=== PATIENT | female | born 1970 | race African-American/Black ===

== ENCOUNTER 2019-05-16 23:52 | Emergency (ER) | payer SELFPAY ==
--- NOTE | 2019-05-17 00:13 | ED.GENADUL_ITS ---
Discharge Plan Disposition Patient Disposition: HOME Condition: Good Discharge Details Chief Complaint: Orthopedic Clinical Impression: Acute pain of right shoulder ED Provider: Korey Loco Home Meds and New Rx's Prescriptions: New lidocaine [Lidoderm] 1 PATCH patch 1 patch Topical Q24H Qty: 4 RF: 0 No Action ibuprofen 800 mg Tablet 800 mg PO PRN PRNRF: 0 venlafaxine [Effexor XR] 150 mg Capsule,Extended Release 24hr 150 mg PO QPM RF: 0 ropinirole 2 mg Tablet Extended Release 24 Hr 2.5 mg PO DAILY RF: 0 Discharge Instructions Instructions: Shoulder Pain (ED) Additional Instructions: At this time I am concerned that you have injured your rotator cuff and labrum in your shoulder. Please avoid any significant use of your right shoulder. Please gently move it in all directions to maintain mobility. Recommend continuing Tylenol and Motrin daily, and the Lidoderm patches as needed. Please follow-up closely with the firefighting equipment specialist. If you notice any worsening of your symptoms, or any new symptoms such as vomiting, diarrhea, fever, chills, shortness of breath, chest pain, numbness, weakness, or fainting , please return immediately to the emergency department for reevaluation. Please follow up with your primary care provider as soon as possible for reassessment and reevaluation. As always, it was a pleasure participating in your medical care today. Stand Alone Forms: Work Release Medical Decision Making This is a pleasant 49-year-old -British female who presents for right shoulder right elbow pain. 5 days ago she fell and landed on her right shoulder and elbow. Since then she has had mild to moderate pain with movement. Pain is made worse with movement improved only slightly with NSAIDs and IcyHot. She has subjective tingling in her fourth and fifth digits. Physical exam demonstrates significant decrease in range of motion secondary to pain and stiffness. Pain is present with empty can test, as well as external rotation and abduction. She also has mild pain over the medial epicondyles of her right elbow. Signs and symptoms are concerning for mild ulnar nerve irritation from the cubital tunnel, with no appreciable deficit. Also concerning for potential labral tear and rotator cuff injury of her right shoulder. I do notably suspect bursal inflammation of her right shoulder as well. Doubt fracture. We will get x-rays to rule out acute process. We will give Toradol and Lidoderm patch. Pending results I do anticipate safe discharge, with recommendation for continued NSAIDs, rest, gentle stretches, close follow-up with orthopedics if her symptoms do not improve in the next 4 to 6 weeks. 1:12 AM X-ray results are negative for acute process. I do feel that the patient is likely still suffering from mild rotator cuff injury, potential labral injury, and bursal inflammation with mild impingement syndrome. Symptoms are notably musculoskeletal. At this time there is no clinical evidence of atypical cardiac etiology. This time I feel the fate patient can go home, however we will place orthopedic referral. Recommend continued NSAIDs, Lidoderm patch, and rest. We will give a sling, however recommend that this is only to be used as absolutely needed. Recommend continued exercises to maintain mobility. Of note prior to discharge a local block was performed. 10 cc of a 50-50 mixture of lidocaine and bupivacaine were used, 5 cc were placed at the point of maximal pain by the scapula and 5 cc were placed at the point of maximal pain over the anterior shoulder. Anesthetic was placed notably superficial and then rubbed him. The patient had near complete resolution of her symptoms after administration of this. Discussed red flags for which to return. I have extensively reviewed the treatment plan and discharge instructions with the patient. I have addressed all patient concerns at this time. The patient was made aware of what symptoms to monitor for that would warrant a return to the emergency department. Discussed the plan with the patient, they demonstrate verbal understanding and agreement with our assessment and plan at this time. EKG 1: 32 Rate 63, intervals normal, sinus rhythm, no significant ST elevations or depressions, inverted T wave is present in V1. No Q waves. No evidence of STEMI. FINDINGS: Bones/joints: Typical for age. No evidence of acute fracture. Soft tissues: Unremarkable. IMPRESSION: No acute findings. Thank you for allowing us to participate in the care of your patient. Dictated and Authenticated by: Peng Campbell MD FINDINGS: Bones/joints: Unremarkable. No significant degenerative change for age. No evidence of acute fracture or malalingment. Soft tissues: Unremarkable. IMPRESSION: No acute findings. Thank you for allowing us to participate in the care of your patient. Dictated and Authenticated by: Peng Campbell MD 05/17/2019 1:09 AM Eastern Time ([place] & [place]) HPI General Date/Time Provider Initiated Documentation: 05/17/19 00:10 . HPI Narrative: This is a pleasant 49-year-old -British female who presents today for evaluation of right shoulder and elbow pain. She is right-hand dominant. Patient states that 5 days ago she fell and landed on her right shoulder and elbow. Since then she has had mild to moderate pain in the lateral aspect of her shoulder in the medial aspect of her elbow. She has associated tingling on her fourth and fifth digit, pain is made worse with movement, not significantly improved with Tylenol Motrin or IcyHot. She denies any head pain chest pain forearm or hand pain. She denies any other complaints at this time. No other modifying factors. Related Data Home Medications Medication Instructions Recorded Confirmed ibuprofen 800 mg PO PRN PRN 05/17/19 05/17/19 lidocaine [Lidoderm] 1 patch TOPICAL Q24H #4 patch 05/17/19 ropinirole 2.5 mg PO DAILY 05/17/19 05/17/19 venlafaxine [Effexor XR] 150 mg PO QPM 05/17/19 05/17/19 Previous Rx's Medication Instructions Recorded lidocaine [Lidoderm] 1 patch TOPICAL Q24H #4 patch 05/17/19 Allergies Allergy/AdvReac Type Severity Reaction Status Date / Time ceftriaxone [From Rocephin] Allergy Intermediate Hives Unverified 05/17/19 00:17 orphenadrine [From Norflex] Allergy Intermediate Skin Rash Unverified 05/17/19 00:17 Review of Systems All systems reviewed & are unremarkable except as noted in HPI and below PFSH Social History Smoking/Tobacco Use Status: Never Exam Narrative Exam Narrative: 1.Const: Well-nourished, Well-developed, appearing stated age 2.Eyes: PERRL, no conjunctival injection, and symmetrical lids. 3.ENT: Atraumatic external nose and ears. Moist MM. Neck: Symmetric, trachea midline, No thyromegaly. 4.CVS: +S1/S2, No murmurs or gallops. Peripheral pulses 2+ and equal in all extremities. Brisk capillary refill in all extremities. 5.RESP: Unlabored respiratory effort. Clear to auscultation bilaterally. No wheezes rales or rhonchi 6.GI: Soft, Nontender/Nondistended, No hepatosplenomegaly. No guarding or rebound. 7.MSK: Normocephalic/Atraumatic, Extremities w/o deformity. No cyanosis or clubbing. Right shoulder: Pain is present with passive range of motion primarily for external rotation, abduction and adduction. Empty can test is positive for worsening of pain. Notable reduction in range of motion in general. No crepi tus. Mild pain over the AC joint. 5 out of 5 strength though. Mild tenderness over the medial epicondyle of the elbow on the right. No deformity. Normal and intact sensation throughout the forearm and hand, subjective decrease in sensation for the fourth and fifth digits, however two-point discrimination is intact throughout, up to 5 mm, in addition to pinprick and light touch are also intact. Normal flexion and extension, brisk capillary refill. No other deficits or abnormalities. 8.Skin: Warm, Dry. No rashes or lesions. 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 Sensation grossly intact, no focal neurologic deficits. Please see musculoskeletal 10.Psych: (AAO) x3. Appropriate mood and affect
[2019-05-17 00:14] VITALS: BP 129/70; PULSE 84; RESP 20; TEMP 36.8; O2SAT 97
[2019-05-17] MEDS: Ketorolac 30 MG/ML VIAL IM (00:33)
[2019-05-17] MEDS: Lidocaine 5% Patch 1 PATCH TP (00:33)
--- NOTE | 2019-05-17 00:48 | DI.RAD_ITS ---
EXAM: XR ELBOW RT COMPLETE INDICATION: fell on right shoulder and elbow,PAIN COMPARISON: No exams were available for comparison TECHNIQUE: 2D digital imaging was performed. FINDINGS: No fracture or joint effusion is seen. There are no significant degenerative changes. No soft tissu e or joint space calcifications are seen. IMPRESSION: Negative right elbow.
--- NOTE | 2019-05-17 00:59 | DI.RAD_ITS ---
EXAM: XR SHOULDER RT COMPLETE 2+V INDICATION: fell on right shoulder and elbow,pain COMPARISON: No exams were available for comparison TECHNIQUE: 2D digital imaging was performed. FINDINGS: The exam is somewhat limited by overlying hair. No fracture or dislocation is seen. The visualized portions of the right ribs appear intact. IMPRESSION: Negative right shoulder.
--- NOTE | 2019-05-17 01:09 | DI.VRAD_ITS ---
PROCEDURE INFORMATION: Exam: XR Right Elbow Exam date and time: 05/17/2019 12:13 AM Age: 49 years old Clinical history: Patient HX: Fell on right shoulder and elbow a couple days ago, persistent pain since TECHNIQUE: Imaging protocol: XR Right elbow. Views: 3 or more views. COMPARISON: No relevant prior studies available. FINDINGS: Bones/joints: Typical for age. No evidence of acute fracture. Soft tissues: Unremarkable. IMPRESSION: No acute findings. Dictated and Authenticated by: Peng Campbell MD. Ordering:CARLY Nair MD
--- NOTE | 2019-05-17 01:09 | DI.VRAD_ITS ---
PROCEDURE INFORMATION: Exam: XR Right Shoulder Exam date and time: 05/17/2019 12:55 AM Age: 49 years old Clinical history: Patient HX: Fell on right shoulder and elbow a couple days ago, persistent pain since TECHNIQUE: Imaging protocol: XR Right shoulder. Views: 2 or more views. COMPARISON: No relevant prior studies available. FINDINGS: Bones/joints: Unremarkable. No significant degenerative change for age. No evidence of acute fracture or malalingment. Soft tissues: Unremarkable. IMPRESSION: No acute findings. Dictated and Authenticated by: Peng Campbell MD. Ordering:CARLY Nair MD
== END 2019-05-17 01:55 | disposition home or self-care (01) ==
LOC: ER 05-17 01:50
PROVIDERS: Emergency Provider Student in an Organized Health Care Education/Training Program
DX: M25.511 Pain in right shoulder (principal); M25.521 Pain in right elbow; R20.2 Paresthesia of skin; W19.XXXA Unspecified fall, initial encounter
CPT/HCPCS: 93005; 96372; 99284; 73030; 73080; 93010; J1885; L3650